=== PATIENT | female | born 1965 | race Caucasian/White ===

== ENCOUNTER 2016-12-19 16:28 | Emergency (ER) | payer MEDICARE ==
[2015-02-13 10:07] VITALS: BMI 49.2
[~2016-12-19 16:28] MED LIST: ADVAIR HFA [SP]12 GM INH; ANUSOL-HC25 MG RC; FLAGYL500 MG PO; LEVAQUIN500 MG PO; PEPCID20 MG PO; SYMBICORT 80-10.2 GM INH; SYNTHROID300 MCG PO; VENTOLIN HFA18 GM INH; XANAX0.5 MG PO; ZOLOFT100 MG PO
[2016-12-19 17:14] LABS: BASOPHILS 0.5 % (0.0-2.0); EOSINOPHILS 1.2 % (0-7); HEMATOCRIT 41.3 % (36.0-48.0); HEMOGLOBIN 12.2 g/dL (12-16); IMMATURE GRANULOCYTES 0.9 % (0-5); LYMPHOCYTES 14.5 % (15-50); MCH 27.5 pg (26.0-34.0); MCHC 29.5 g/dL (31.0-37.0); MCV 93.2 fL (80.0-100.0); MONOCYTES 5.6 % (2-11); NEUTROPHILS 77.3 % (40-80); RBC 4.43 10x6/uL (4.00-5.40); RDW 16.6 % (11.5-14.5)
[2016-12-19 17:15] LABS: PLATELET COUNT 147 10x3/uL (130-400)
[2016-12-19 17:43] LABS: ALBUMIN 3.4 g/dL (3.4-5.0); ANION GAP 8.2 mmol/L (8-16); BILIRUBIN - TOTAL 0.4 mg/dL (0.2-1.3); CALCIUM 8.4 mg/dL (8.5-10.1); CARBON DIOXIDE 38.2 mmol/L (21.0-32.0); CREATININE - SERUM 1.1 mg/dL (0.6-1.3); POTASSIUM - SERUM 4.4 mmol/L (3.5-5.1); PROTEIN - SERUM 6.8 g/dL (6.4-8.2)
== END 2016-12-19 18:50 | disposition home or self-care (01) ==
LOC: D.ER 16:28
PROVIDERS: Emergency Medicine
DX: I50.9 Heart failure, unspecified (principal); I51.7 Cardiomegaly; J45.901 Unspecified asthma with (acute) exacerbation; C50.919 Malignant neoplasm of unspecified site of unspecified female breast; D50.9 Iron deficiency anemia, unspecified